=== PATIENT | female | born 1955 | race Two or more races ===

== ENCOUNTER 2017-05-31 15:58 | Emergency (ER) | payer OTHER ==
--- NOTE | 2017-05-31 17:32 | EDPHY ---
H & P Stated Complaint: L calf pain-seen Urgent care 05/31, needs US. Time Seen by Provider: 05/31/17 17:31 - Personal History Current Tetanus/Diphtheria Vaccine: Unsure Current Tetanus Diphtheria and Acellular Pertussis (TDAP): Unsure - Medical/Surgical History Hx Asthma: No Hx Chronic Respiratory Disease: No Hx Diabetes: No Hx Cardiac Disease: No Hx Renal Disease: No Hx Cirrhosis: No Hx Alcoholism: No Hx HIV/AIDS: No Hx Splenectomy or Spleen Trauma: No Other PMH: high cholesterol, hypothyroidsim, tonsillectomy. - Social History Smoking Status: Never smoked Constitutional: Initial Vital Signs Temperature (C) 36.5 C 05/31/17 16:31 Heart Rate 78 05/31/17 16:31 Respiratory Rate 16 05/31/17 16:31 Blood Pressure 136/111 H 05/31/17 16:31 O2 Sat (%) 98 05/31/17 16:31 O2 Delivery Mode Room Air Allergies/Adverse Reactions: No Known Allergies Allergy (Unverified 05/31/17 16:35) Home Medications: Medication Instructions Recorded Levothyroxine 05/31/17 Simvastatin 05/31/17 methylPREDNISolone [Medrol Dose 1 each PO AD #1 ea 05/31/17 [place]] oxyCODONE IR [Oxycodone Ir (*)] 5 - 10 mg PO Q6 PRN #20 tab 05/31/17 Medical Decision Making - Diagnostics Imaging Results: Imaging Impressions Extremity Venous Study 05/31/17 16:43 Impression: No evidence of deep vein thrombosis in the left lower extremity. Results called and discussed with Dr. Mathew Sinclair on 05/31/2017 at 17:50 Imaging: Discussed imaging studies w/ call center assistant Radiologist ED Course/Re-evaluation: CHIEF COMPLAINT: Leg pain HISTORY OF PRESENT ILLNESS: The patient is a 62 y/o female arriving with her complaining of radiating left leg pain for about one week. They are traveling from [place] and were recently on a 12-hour flight from [place]. She has associated lumbar pain that began a few days before her leg pain that has since resolved. Her leg pain is now present only in her posterior thigh and gluteal region, though it previously extended to her calf. Her pain is aggravated by sitting and lying down and alleviated somewhat while standing. She denies dyspnea, chest pain, leg swelling, or other complaints. She has never experienced these symptoms previously. History obtained via use of Welsh hourly sign language interpreter. REVIEW OF SYSTEMS: A 10 point review of systems was performed and is negative with the exception of the elements mentioned in the history of present illness. PHYSICAL EXAM: HR, BP, O2 Sat, RR. Temp noted General Appearance: Alert, well hydrated, appropriate, and non-toxic appearing. Head: Atraumatic without scalp tenderness or obvious injury Eyes: Pupils equal, round, reactive to light and accommodation, EOMI, no trauma , no injection. Nose: Atraumatic, no rhinorrhea, clear. Throat: Mucus membranes moist. Neck: Supple, nontender Respiratory: No retractions, no distress, no wheezes, and no accessory muscle use. Lungs are clear to auscultation bilaterally. Cardiovascular: Regular rate and rhythm, no murmurs, rubs, or gallops. Left dorsalis pedis pulse intact. Good capillary refill all extremities. Gastrointestinal: Abdomen is soft, nontender, non-distended, no masses, no rebound, no guarding, no peritoneal signs. Musculoskeletal: Normal active ROM of all extremities, atraumatic. Neurological: Alert, appropriate, and interactive. Nonfocal neuro exam. Skin: No rashes, good turgor, no nodules on palpation. Past medical history: Hypercholesterolemia, hypothyroidism Past surgical history: Denies Family history: Noncontributory Social history: Primarily Welsh-speaking. Visiting with her from [facility]. DIAGNOSTICS/PROCEDURES/CRITICAL CARE TIME: US left leg: No DVT. DIFFERENTIAL DIAGNOSIS: The differential diagnosis for the patient's back pain and radiculopathy included but was not limited to musculoskeletal pain, epidural abscess, herniated disk, spinal fracture, and intra-abdominal causes including urinary system. MEDICAL DECISION MAKING: This is a healthy 62 y/o female visiting from [facility] who presents with a 1-week history of lumbar back and radiating left leg pain. Her back pain resolved, but she continues to have left gluteal and posterior thigh pain upon assessment that is aggravated with movement. She is neurovascularly intact and there is no evidence of acute cauda equina syndrome. Her symptoms are consistent with lumbar radiculopathy; however, due to her recent traveling and calf pain, we will perform an US to rule out DVT. She has no dyspnea or chest pain. She declines pain medication at this time. US is negative for DVT. Discussed standard radiculopathy care instructions and follow up recommendation. She will be discharged with Medrol and OxyIR for her symptoms. Return precautions discussed. She is comfortable with this plan. Departure - Departure Disposition: Home, Routine, Self-Care Clinical Impression: Lumbar radiculopathy Condition: Good Instructions: Lumbar Radiculopathy (ED) Additional Instructions: 1. Take Medrol dose pack as prescribed. 2. Use OxyIR as needed for severe pain. 3. Follow up with a mechanical integrity specialist for unimproved symptoms in the next week. 4. Return to the ED for severe pain, weakness or numbness in your legs, incontinence, numbness around your genitals, or other worsening of condition. Referrals: Isaiah Blanco MD [Medical Doctor] - As per Instructions Prescriptions: methylPREDNISolone [Medrol Dose [place]] 1 each PO AD #1 ea oxyCODONE IR [Oxycodone Ir (*)] 5 - 10 mg PO Q6 PRN #20 tab PRN Reason: Pain, Severe Report Scribed for: Mathew Sinclair Report Scribed by: Yulisa Landon Date of Report: 05/31/17 Time of Report: 17:45
[2017-05-31 18:18] VITALS: BP 117/76; PULSE 84; RESP 17; TEMP 98.4; O2SAT 96
== END 2017-05-31 18:17 | disposition home or self-care (01) ==
DX: M54.16 Radiculopathy, lumbar region (principal)